=== PATIENT | male | born 1955 | race Two or more races ===

== ENCOUNTER 2024-04-30 13:11 | Inpatient (IN) | payer OTHER ==
[~2024-04-30] VITALS: Ht 165.1 cm; Wt 78.9 kg
[~2024-04-30 13:11] MED LIST: ALENDRONATE SOD70 MG; ATORVASTATIN CA40 MG; CYANOCOBAL1000 MCG/1; FAMOTIDINE40 MG; GLIMEPIRIDE2 M1; HYOSCYAMINE0.125 M1 SL; IMODIUM A-D2 M2 PO; LOSARTAN POTASS50 MG; PANTOPRAZOLE SO40 MG; TAMSULOSIN HCL0.4 MG
--- NOTE | 2024-04-30 13:57 | NUR ---
PACIENTE REFIERE DOLOR ABDOMINAL DESDE EL VIERNES EN LA TARDE. COLOSTOMIA REALIZADA POR DR. LORA TANNER COLORECTAL. [facility] UN MES POR COLITIS EN EL [facility]. UTILIZO CARAFATE DESDE EL VIERNES SIN MEJORIA.
[2024-04-30] MEDS ORDERED: LACTOBACILLUS ACIDOPHILUS 1 CAP CAP PO ONE (14:30)
[2024-04-30] MEDS ORDERED: FAMOTIDINE/PF 20 MG/2 ML VIAL IV ONE (14:30)
[2024-04-30] MEDS ORDERED: 0.9 % SODIUM CHLORIDE 500 ML IV ONE (14:30)
--- NOTE | 2024-04-30 14:48 | NUR ---
PACIENTE EVALUADO POR QUIEN ORDENA TRATAMIENTO MEDICO, SE LE ORIENTA A PACIENTE SOBRE EL MISMO Y REFIERE ENTENDER, SE LE COLECTAN MUESTRAS Y SE CANALIZA BAJO MEDIDAS ASPETICAS.
[2024-04-30 15:00] LABS: HEMATOCRIT 41.1 % (39.0-48.0); MEAN CELL VOLUME 88.8 fL (80.0-100.00); MEAN CORPUSCULAR HEMOGLOBIN 30.2 pg (27.00-32.0); PLATELET COUNT 181 K/uL (150-450); RED BLOOD COUNT 4.63 M/uL (4.00-6.00)
[2024-04-30 15:12] LABS: RED CELL DISTRIBUTION WIDTH 16.6 % (11.5-14.5)
[2024-04-30 15:21] LABS: PH,URINE 6.5 (5.0-8.0); URINE APPEARANCE Clear; URINE BILIRRUBIN Negative (NEGATIVE); URINE BLOOD Negative; URINE COLOR Yellow; URINE GLUCOSE Negative (NEGATIVE); URINE KETONE Negative (NEGATIVE); URINE LEUKOCYTE Negative; URINE NITRATE Negative; URINE PROTEIN Negative (NEGATIVE); URINE UROBILINOGEN 0.2 E.U./dl
[2024-04-30 15:31] LABS: ALBUMIN 3.5 gm/dL (3.4-5.0); BILIRUBIN TOTAL 0.8 mg/dL (0.3-1.2); CALCIUM 8.5 mg/dL (8.5-10.1); CREATININE SERUM 0.97 mg/dL (0.70-1.30); GFR 76.96; GLOBULINA 2.9 G/DL (2.4-3.5); POTASSIUM 4.26 mEq/L (3.5-5.1); TOTAL PROTEIN 6.4 gm/dL (6.4-8.2)
[2024-04-30 15:34] LABS: URINE BACTERIA 1.2 uL (0.0-1933); URINE EPITHELIAL CELLS 1.3 uL (0.0-38.8); URINE RBC 1.3 uL (0.0-20.8); URINE WBC 1.3 uL (0.0-23.2)
[2024-04-30] MEDS ORDERED: 0.9 % SODIUM CHLORIDE 1,000 ML IV SCH (22:15)
[2024-04-30] MEDS ORDERED: DEXTROSE 50 % IN WATER 0.5 G/ML DISP.SYRIN IV PRN (22:30)
[2024-04-30] MEDS ORDERED: ACETAMINOPHEN 500 MG GEL..CAP PO PRN (22:30)
[2024-04-30] MEDS ORDERED: ONDANSETRON HCL 4 MG in 0.9 % SODIUM CHLORIDE 50 ML IV PRN (22:30)
[2024-04-30] MEDS ORDERED: INSULIN LISPRO 1,000 UNIT/10 ML UNITS SUBCUTANEO PRN (22:30)
[2024-04-30 23:33] LABS: INR 1.05; PARTIAL THROMBOPLASTIN TIME 26.8 SECONDS (22.0-34.0); PROTHROMBIN TIME 11.4 SECONDS (9.0-11.5)
[2024-05-01] MEDS ORDERED: PIPERACILLIN/TAZOBACTAM SODIUM 3.375 GM in DEXTROSE 5 % IN WATER 100 ML IV SCH
[2024-05-01 01:15] VITALS: BP 101/61; O2SAT 99
[2024-05-01 07:30] VITALS: BP 113/68; O2SAT 98
[2024-05-01] MEDS ORDERED: ATORVASTATIN CALCIUM 40 MG TABLET PO SCH (09:00)
[2024-05-01] MEDS ORDERED: TAMSULOSIN HCL 0.4 MG CAP PO SCH (09:00)
[2024-05-01] MEDS ORDERED: FAMOTIDINE/PF 20 MG in 0.9 % SODIUM CHLORIDE 8 ML IV PUSH SCH (09:00)
[2024-05-01] MEDS ORDERED: ENOXAPARIN SODIUM 40 MG/0.4 ML SYRINGE SUBCUTANEO SCH (09:00)
[2024-05-01] MEDS ORDERED: LOSARTAN POTASSIUM 50 MG TABLET PO SCH (09:00)
[2024-05-01 12:28] VITALS: BP 110/64; O2SAT 97
[2024-05-01] MEDS ORDERED: METRONIDAZOLE/SODIUM CHLORIDE 100 ML IV SCH (13:00)
[2024-05-01] MEDS ORDERED: LACTOBACILLUS ACIDOPHILUS 1 CAP CAP PO SCH (13:00)
[2024-05-01 16:00] VITALS: BP 110/69; O2SAT 97
[2024-05-01] MEDS ORDERED: CIPROFLOXACIN IN 5 % DEXTROSE 400 MG/200 ML PIGGYBAG IV SCH (21:00)
[2024-05-02 00:43] VITALS: BP 111/64; O2SAT 96
[2024-05-02 08:00] VITALS: BP 121/75; O2SAT 98
[2024-05-02 20:05] VITALS: BP 116/69; O2SAT 97
[2024-05-03 01:46] VITALS: BP 128/65; O2SAT 98
[2024-05-03 06:54] LABS: HEMATOCRIT 36.4 % (39.0-48.0); HEMOGLOBIN 12.7 g/dL (13-16.00); MEAN CELL VOLUME 89.1 fL (80.0-100.00); MEAN CORPUSCULAR HEMOGLOBIN 31.1 pg (27.00-32.0); MEAN CORPUSCULAR HGB CONC 34.9 g/dl (32.0-36.0); PLATELET COUNT 157 K/uL (150-450); RED BLOOD COUNT 4.08 M/uL (4.00-6.00)
[2024-05-03 07:12] LABS: CALCIUM 7.7 mg/dL (8.5-10.1); CREATININE SERUM 0.89 mg/dL (0.70-1.30); POTASSIUM 4.13 mEq/L (3.5-5.1)
[2024-05-03 08:00] VITALS: BP 122/75; O2SAT 99
[2024-05-03 16:00] VITALS: BP 125/70; O2SAT 95
[2024-05-03] MEDS ORDERED: LACTOBACILLUS ACIDOPHILUS 1 CAP CAP PO SCH (17:00)
[2024-05-04 01:40] VITALS: BP 106/69; O2SAT 98
[2024-05-04 08:55] VITALS: BP 125/74; O2SAT 98
[2024-05-04 21:05] LABS: GIARDIA LAMBLIA EIA Negative (Negative)
[2024-05-07 07:04] LABS: campy Final report (.)
== END 2024-05-04 10:35 | disposition home or self-care (01) | DRG 392 ==
LOC: ER 13:12 → SURH 22:23
PROVIDERS: General Practice; Internal Medicine Infectious Disease; Nurse Practitioner Family; ADMIT Internal Medicine; ATTEND Internal Medicine
PROC: BW21YZZ Computerized Tomography (CT Scan) of Abdomen and Pelvis using Other Contrast (ICD-10-PCS; principal; 2024-04-30)
PROC: 02HV33Z Insertion of Infusion Device into Superior Vena Cava, Percutaneous Approach (ICD-10-PCS; 2024-05-02)
PROC: 3E04329 Introduction of Other Anti-infective into Central Vein, Percutaneous Approach (ICD-10-PCS; 2024-05-02)
DX: K52.9 Noninfective gastroenteritis and colitis, unspecified (principal); R65.10 Systemic inflammatory response syndrome (SIRS) of non-infectious origin without acute organ dysfunction; R63.0 Anorexia; E11.9 Type 2 diabetes mellitus without complications; I10 Essential (primary) hypertension; Z79.84 Long term (current) use of oral hypoglycemic drugs; Z93.2 Ileostomy status

== ENCOUNTER 2024-05-15 17:06 | Inpatient (IN) | payer OTHER ==
[~2024-05-15] VITALS: Ht 165.1 cm; Wt 78.9 kg
[2024-05-15] MEDS ORDERED: 0.9 % SODIUM CHLORIDE 1,000 ML IV SCH ×2 (17:45→19:30)
[2024-05-15 18:01] LABS: HEMATOCRIT 41.7 % (39.0-48.0); HEMOGLOBIN 14.3 g/dL (13-16.00); MEAN CELL VOLUME 88.7 fL (80.0-100.00); MEAN CORPUSCULAR HEMOGLOBIN 30.5 pg (27.00-32.0); MEAN CORPUSCULAR HGB CONC 34.4 g/dl (32.0-36.0); PLATELET COUNT 231 K/uL (150-450); RED CELL DISTRIBUTION WIDTH 16.7 % (11.5-14.5)
[2024-05-15 18:07] LABS: PH,URINE 5.5 (5.0-8.0); URINE APPEARANCE Clear; URINE BILIRRUBIN Negative (NEGATIVE); URINE BLOOD Negative; URINE COLOR Yellow; URINE GLUCOSE Negative (NEGATIVE); URINE KETONE Negative (NEGATIVE); URINE LEUKOCYTE Negative; URINE NITRATE Negative; URINE PROTEIN Negative (NEGATIVE); URINE UROBILINOGEN 0.2 E.U./dl
[2024-05-15 18:09] LABS: URINE WBC 2.6 uL (0.0-23.2)
[2024-05-15 18:11] LABS: URINE BACTERIA 0 uL (0.0-1933); URINE CAST 0.15 uL (0.0-1.40); URINE EPITHELIAL CELLS 0.6 uL (0.0-38.8)
[2024-05-15 18:34] LABS: CALCIUM 9.1 mg/dL (8.5-10.1); GFR 74.31; POTASSIUM 4.23 mEq/L (3.5-5.1)
[2024-05-15] MEDS ORDERED: METRONIDAZOLE/SODIUM CHLORIDE 500 MG/100 ML PIGGYBACK IV ONE (19:15)
[2024-05-15] MEDS ORDERED: CIPROFLOXACIN IN 5 % DEXTROSE 400 MG/200 ML PIGGYBAG IV ONE (19:15)
[2024-05-15] MEDS ORDERED: MORPHINE SULFATE 4 MG/ML CARTRIDGE IV PRN (19:45)
[2024-05-15] MEDS ORDERED: DEXTROSE 50 % IN WATER 0.5 G/ML DISP.SYRIN IV PRN (19:45)
[2024-05-15] MEDS ORDERED: ONDANSETRON HCL 4 MG in 0.9 % SODIUM CHLORIDE 50 ML IV PRN (19:45)
[2024-05-15] MEDS ORDERED: INSULIN LISPRO 1,000 UNIT/10 ML UNITS SUBCUTANEO PRN (19:45)
[2024-05-15] MEDS ORDERED: ACETAMINOPHEN 500 MG GEL..CAP PO PRN (19:45)
[2024-05-15 20:52] LABS: INR 1.02; PARTIAL THROMBOPLASTIN TIME 23.9 SECONDS (22.0-34.0); PROTHROMBIN TIME 11.1 SECONDS (9.0-11.5)
[2024-05-15 20:55] LABS: C-REACTIVE PROTEIN < 0.29 MG/DL (0.00-0.29)
[2024-05-15] MEDS ORDERED: CIPROFLOXACIN IN 5 % DEXTROSE 200 ML IV SCH (21:00)
[2024-05-15 23:53] VITALS: BP 122/78; O2SAT 95
[2024-05-16] MEDS ORDERED: METRONIDAZOLE/SODIUM CHLORIDE 100 ML IV SCH (01:00)
[2024-05-16 08:00] VITALS: BP 156/75; O2SAT 99
[2024-05-16] MEDS ORDERED: TAMSULOSIN HCL 0.4 MG CAP PO SCH (09:00)
[2024-05-16] MEDS ORDERED: FAMOTIDINE/PF 20 MG in 0.9 % SODIUM CHLORIDE 8 ML IV PUSH SCH (09:00)
[2024-05-16] MEDS ORDERED: ENOXAPARIN SODIUM 40 MG/0.4 ML SYRINGE SUBCUTANEO SCH (09:00)
[2024-05-16 18:51] VITALS: BP 142/75; O2SAT 96
[2024-05-17] VITALS: BP 123/62; O2SAT 98
[2024-05-17 07:07] LABS: ALBUMIN 3.6 gm/dL (3.4-5.0); BILIRUBIN TOTAL 0.59 mg/dL (0.3-1.2); C-REACTIVE PROTEIN 0.38 MG/DL (0.00-0.29); CALCIUM 8.6 mg/dL (8.5-10.1); CREATININE SERUM 1.12 mg/dL (0.70-1.30); GFR 65.2; GLOBULINA 2.7 G/DL (2.4-3.5); MAGNESIUM 2.1 mg/dL (1.8-2.4); PHOSPHOROUS 3.7 mg/dL (2.5-4.9); POTASSIUM 5.07 mEq/L (3.5-5.1); TOTAL PROTEIN 6.3 gm/dL (6.4-8.2)
[2024-05-17 07:09] LABS: HEMATOCRIT 41.8 % (39.0-48.0); HEMOGLOBIN 14.2 g/dL (13-16.00); MEAN CELL VOLUME 91.5 fL (80.0-100.00); MEAN CORPUSCULAR HGB CONC 33.9 g/dl (32.0-36.0); PLATELET COUNT 220 K/uL (150-450); RED BLOOD COUNT 4.57 M/uL (4.00-6.00); RED CELL DISTRIBUTION WIDTH 16.9 % (11.5-14.5)
[2024-05-17 08:00] VITALS: BP 125/72; O2SAT 96
[2024-05-17 23:00] VITALS: BP 103/58; O2SAT 95
[2024-05-18 08:11] VITALS: BP 122/68; O2SAT 97
[2024-05-18] MEDS ORDERED: FAMOTIDINE/PF 20 MG in 0.9 % SODIUM CHLORIDE 8 ML IV PUSH SCH (21:00)
[2024-05-19 00:33] VITALS: BP 113/73; O2SAT 97
[2024-05-19] MEDS ORDERED: INTESTINEX680 M1 PO (08:45)
[2024-05-19] MEDS ORDERED: CIPRO500 MG PO (08:45)
[2024-05-19] MEDS ORDERED: PEPCID AC20 MG PO (08:45)
[2024-05-19] MEDS ORDERED: METRONIDAZOLE500 MG PO (08:45)
[2024-05-19 10:22] VITALS: BP 156/81; O2SAT 100
== END 2024-05-19 10:37 | DRG 394 ==
LOC: ER 17:07 → SEC-K 20:43 → SURG 20:43
PROVIDERS: Emergency Medicine; General Practice; Internal Medicine Infectious Disease; ADMIT Surgery; ATTEND Surgery
PROC: BW21YZZ Computerized Tomography (CT Scan) of Abdomen and Pelvis using Other Contrast (ICD-10-PCS; principal; 2024-05-15)
DX: K43.3 Parastomal hernia with obstruction, without gangrene (principal); K56.7 Ileus, unspecified; K52.9 Noninfective gastroenteritis and colitis, unspecified; E11.9 Type 2 diabetes mellitus without complications; I10 Essential (primary) hypertension; E03.9 Hypothyroidism, unspecified; Z93.2 Ileostomy status; Z79.4 Long term (current) use of insulin

== ENCOUNTER 2024-06-14 12:15 | Inpatient (IN) | payer OTHER ==
[~2024-06-14] VITALS: Ht 152.4 cm; Wt 78.9 kg
[~2024-06-14 12:15] MED LIST changes: +CIPRO500 MG PO; +INTESTINEX680 M1 PO; +METRONIDAZOLE500 MG PO; +PEPCID AC20 MG PO
[2024-06-14 14:06] VITALS: BP 155/84
[2024-06-22] MEDS ORDERED: BUPIVACAINE HCL 30 ML VIAL IJ ONE (10:15)
[2024-06-22] MEDS ORDERED: METRONIDAZOLE/SODIUM CHLORIDE 200 ML IV ONE (10:15)
[2024-06-22] MEDS ORDERED: CEFTRIAXONE SODIUM 2,000 MG in 0.9 % SODIUM CHLORIDE 50 ML IV ONE (10:15)
[2024-06-22] MEDS ORDERED: RINGERS SOLUTION,LACTATED 1,000 ML IV SCH (10:45)
[2024-06-22] MEDS ORDERED: MORPHINE SULFATE 4 MG/ML CARTRIDGE IV PRN (10:45)
[2024-06-22] MEDS ORDERED: DEXTROSE 50 % IN WATER 0.5 G/ML DISP.SYRIN IV PRN ×2 (10:45→16:00)
[2024-06-22] MEDS ORDERED: OxyCODONE HCL 5 MG TABLET (ROXICODONE) PO PRN (10:45)
[2024-06-22] MEDS ORDERED: ONDANSETRON HCL 2 MG/ML VIAL IV PRN (10:45)
[2024-06-22] MEDS ORDERED: MORPHINE SULFATE 4 MG/ML VIAL IV ONE ×2 (11:35→12:10)
[2024-06-22 12:06] LABS: HEMATOCRIT 42.7 % (39.0-48.0); HEMOGLOBIN 14.1 g/dL (13-16.00); MEAN CELL VOLUME 91.5 fL (80.0-100.00); MEAN CORPUSCULAR HEMOGLOBIN 30.3 pg (27.00-32.0); MEAN CORPUSCULAR HGB CONC 33.1 g/dl (32.0-36.0); PLATELET COUNT 162 K/uL (150-450); RED BLOOD COUNT 4.66 M/uL (4.00-6.00); RED CELL DISTRIBUTION WIDTH 14.3 % (11.5-14.5)
[2024-06-22] MEDS ORDERED: HYOSCYAMINE SULFATE 0.125 MG TAB.SUBL SL SCH (13:00)
[2024-06-22 13:18] LABS: ALBUMIN 3.5 gm/dL (3.4-5.0); CALCIUM 8.5 mg/dL (8.5-10.1); CREATININE SERUM 0.94 mg/dL (0.70-1.30); GFR 79.81; PHOSPHOROUS 3.8 mg/dL (2.5-4.9); POTASSIUM 4.24 mEq/L (3.5-5.1)
[2024-06-22] MEDS ORDERED: ACETAMINOPHEN 500 MG GEL..CAP PO SCH (14:00)
[2024-06-22] MEDS ORDERED: INSULIN LISPRO 1,000 UNIT/10 ML UNITS SUBCUTANEO PRN (16:00)
[2024-06-22 16:07] VITALS: BP 135/76; O2SAT 95
[2024-06-22] MEDS ORDERED: POLYETHYLENE GLYCOL 3350 17 GM BLIST.PACK PO SCH (17:00)
[2024-06-22] MEDS ORDERED: GABAPENTIN 300 MG CAPSULE PO SCH (17:00)
[2024-06-22] MEDS ORDERED: FAMOTIDINE/PF 20 MG/2 ML VIAL IV PUSH SCH (21:00)
[2024-06-23 00:44] VITALS: BP 142/74; O2SAT 98
[2024-06-23 08:00] VITALS: BP 117/63; O2SAT 97
[2024-06-23] MEDS ORDERED: TAMSULOSIN HCL 0.4 MG CAP PO SCH (09:00)
[2024-06-23] MEDS ORDERED: LOSARTAN POTASSIUM 50 MG TABLET PO SCH (09:00)
[2024-06-23 09:15] LABS: HEMATOCRIT 41.1 % (39.0-48.0); HEMOGLOBIN 14.3 g/dL (13-16.00); MEAN CORPUSCULAR HEMOGLOBIN 31.3 pg (27.00-32.0); MEAN CORPUSCULAR HGB CONC 34.7 g/dl (32.0-36.0); PLATELET COUNT 156 K/uL (150-450); RED BLOOD COUNT 4.56 M/uL (4.00-6.00); RED CELL DISTRIBUTION WIDTH 14.4 % (11.5-14.5)
[2024-06-23 09:51] LABS: CREATININE SERUM 0.8 mg/dL (0.70-1.30); GFR 96.13; MAGNESIUM 2.1 mg/dL (1.8-2.4); PHOSPHOROUS 3.9 mg/dL (2.5-4.9); POTASSIUM 3.77 mEq/L (3.5-5.1)
[2024-06-23 15:00] VITALS: BP 135/69; O2SAT 99
[2024-06-23] MEDS ORDERED: ENOXAPARIN SODIUM 40 MG/0.4 ML SYRINGE SUBCUTANEO SCH (17:00)
[2024-06-24 00:43] VITALS: BP 129/72; O2SAT 96
[2024-06-24 07:55] LABS: CALCIUM 8.1 mg/dL (8.5-10.1); CREATININE SERUM 0.79 mg/dL (0.70-1.30); GFR 97.54; MAGNESIUM 1.9 mg/dL (1.8-2.4); PHOSPHOROUS 2.1 mg/dL (2.5-4.9); POTASSIUM 3.66 mEq/L (3.5-5.1)
[2024-06-24 08:00] LABS: HEMATOCRIT 38.8 % (39.0-48.0); HEMOGLOBIN 13.5 g/dL (13-16.00); MEAN CELL VOLUME 89.7 fL (80.0-100.00); MEAN CORPUSCULAR HEMOGLOBIN 31.4 pg (27.00-32.0); MEAN CORPUSCULAR HGB CONC 34.9 g/dl (32.0-36.0); RED BLOOD COUNT 4.32 M/uL (4.00-6.00); RED CELL DISTRIBUTION WIDTH 14.4 % (11.5-14.5)
[2024-06-24 08:18] LABS: PLATELET COUNT 152 K/uL (150-450)
[2024-06-24] MEDS ORDERED: ENOXAPARIN SODIUM 40 MG/0.4 ML SYRINGE SUBCUTANEO SCH (09:00)
[2024-06-24 09:14] VITALS: BP 160/74; O2SAT 97
[2024-06-24] MEDS ORDERED: POTASSIUM PHOS,M-BASIC-D-BASIC 3 MM/ML VIAL IV ONE (12:00)
[2024-06-24 16:00] VITALS: BP 145/70; BP 160/77; O2SAT 100
[2024-06-25 00:35] VITALS: BP 139/69; O2SAT 99
[2024-06-25 07:36] VITALS: BP 117/69; O2SAT 96
[2024-06-25] MEDS ORDERED: INTESTINEX680 M1 PO (15:02)
[2024-06-25] MEDS ORDERED: NEURONTIN300 MG PO (15:02)
[2024-06-25] MEDS ORDERED: 8 HOUR PAIN RE650 M1 PO (15:02)
[2024-06-25 16:00] VITALS: BP 157/76; O2SAT 97
== END 2024-06-25 19:58 | disposition home or self-care (01) | DRG 330 ==
LOC: O/R 06-22 05:22 → SURH 06-22 07:00
PROVIDERS: Internal Medicine Geriatric Medicine; ADMIT Surgery; ATTEND Surgery
PROC: 0DBB4ZZ Excision of Ileum, Percutaneous Endoscopic Approach (ICD-10-PCS; principal; 2024-06-22 07:00)
DX: Z43.2 Encounter for attention to ileostomy (principal); C20 Malignant neoplasm of rectum; K62.5 Hemorrhage of anus and rectum; K62.89 Other specified diseases of anus and rectum; K66.0 Peritoneal adhesions (postprocedural) (postinfection)